=== PATIENT | male | born 1940 | race Caucasian/White ===

== ENCOUNTER 2020-08-16 05:16 | Inpatient (IN) ==
[2020-08-16 05:42] LABS: Basophils # 0.1 10*3/uL (0.0-0.2); Basophils % 0.5 % (0.0-0.8); Eosinophils # 0.1 10*3/uL (0.0-0.87); Eosinophils % 0.9 % (0.00-10.9); Hematocrit 45.4 VOL% (42.0-52.0); Hemoglobin 15.2 GM/DL (14.0-18.0); Immature Granulocytes % 0.6 %; Immature Granulocytes Absolute 0.08 #; Lymphocytes # 1.5 10*3/uL (1.4-4.0); Lymphocytes % 11.7 % (21.2-54.2); Mean Corpuscular HGB Conc 33.5 GM/DL (32-36); Mean Corpuscular Volume 87.3 FL (87-102); Mean Platelet Volume 9.1 FL (9.6-12.0); Monocytes % 7.2 % (1.7-12.7); Neutrophils % 79.1 % (38.7-73.9); Platelet Count 258 T/CUMM (130-400); Red Cell Distribution Width 14.2 % (9.3-17.3); White Blood Count 12.5 T/CUMM (4-12)
[2020-08-16 05:55] LABS: PT Patient Result 10.5 SECS (9.8-11.9); Partial Thromboplastin Time 35.6 SECS (23.9-33.8)
[2020-08-16 06:03] LABS: Albumin 3.8 G/DL (3.4-5.0); Bilirubin,Total 0.6 MG/DL (0.2-1.0); Calcium 9.6 MG/DL (8.5-10.1); Osmolality,Calculated 280.7 MOS/KG (273-304); Potassium 3.4 MMOL/L (3.5-5.1); Total Protein 8.2 G/DL (6.4-8.3)
[2020-08-16] MEDS ORDERED: LEVOFLOXACIN INJ 750 MG in PREMIX 1 EACH IV STA (07:20)
[2020-08-16] MEDS ORDERED: HYDROmorphone 2 MG/1 ML VIAL IV STA (07:51)
[2020-08-16] MEDS ORDERED: ONDANSETRON 4 MG/2 ML VIAL IV STA ×2 (07:51→09:48)
[2020-08-16] MEDS ORDERED: DEXTROSE 50% 25 GM/50 ML VIAL IV PRN (08:05)
[2020-08-16] MEDS ORDERED: GLUCAGON 1 MG VIAL IM PRN (08:05)
[2020-08-16] MEDS ORDERED: POTASSIUM CHLORIDE 20 MEQ TABLET PO PRN (08:07)
[2020-08-16 08:24] LABS: Bilirubin,Urine Negative (Negative); Blood, Urine Small mg/dL (Negative); Glucose,Urine (UA) 50 mg/dL (Negative); Ketones,Urine 5 mg/dL (Negative); Nitrite,Urine Negative (Negative); Protein,Urine Negative; RBC,Urine 2 /HPF (0-4); Urine Appearance CLEAR (Clear); Urine Color Straw (Yellow); Urine Urobilinogen < 2.0 EU/DL (0.2-1.0)
[2020-08-16] MEDS: SODIUM CHLORIDE 0.9% 1,000 ML IV SCH (09:05)
[2020-08-16] MEDS: ONDANSETRON 4 MG/2 ML VIAL IV PRN (11:45)
[2020-08-16] MEDS ORDERED: PROMETHAZINE INJ 12.5 MG in SODIUM CHLORIDE 0.9% 50 ML IV ONE (12:10)
[2020-08-16] MEDS: ACETAMINOPHEN 325 MG TABLET PO PRN ×2 (16:54→23:26)
[2020-08-16] MEDS: APIXABAN 5 MG TABLET PO SCH (20:41)
[2020-08-16] MEDS: METOPROLOL TARTRATE 25 MG TABLET PO SCH (20:41)
[2020-08-16] MEDS: NON-FORMULARY MEDICATION (Nintedanib [Ofev] 150 mg capsule) PO SCH (20:47)
[2020-08-17] MEDS: SODIUM CHLORIDE 0.9% 1,000 ML IV SCH (05:06)
[2020-08-17] MEDS: ACETAMINOPHEN 325 MG TABLET PO PRN ×4 (06:20→22:00)
[2020-08-17 06:31] LABS: Basophils % 0.3 % (0.0-0.8); Eosinophils # 0.1 10*3/uL (0.0-0.87); Eosinophils % 1.3 % (0.00-10.9); Hematocrit 41.1 VOL% (42.0-52.0); Hemoglobin 13.6 GM/DL (14.0-18.0); Immature Granulocytes % 0.2 %; Immature Granulocytes Absolute 0.02 #; Lymphocytes # 1.3 10*3/uL (1.4-4.0); Lymphocytes % 13.7 % (21.2-54.2); Mean Corpuscular HGB Conc 33.1 GM/DL (32-36); Mean Corpuscular Volume 89.2 FL (87-102); Mean Platelet Volume 9.4 FL (9.6-12.0); Monocytes % 10.2 % (1.7-12.7); Neutrophils % 74.3 % (38.7-73.9); Platelet Count 224 T/CUMM (130-400); Red Blood Count 4.61 MC/CUMM (3.8-5.5); Red Cell Distribution Width 14.4 % (9.3-17.3); White Blood Count 9.1 T/CUMM (4-12)
[2020-08-17 06:58] LABS: Albumin 2.9 G/DL (3.4-5.0); Calcium 8.6 MG/DL (8.5-10.1); Osmolality,Calculated 277.5 MOS/KG (273-304); Potassium 3.5 MMOL/L (3.5-5.1); Risk Ratio 2.8; Thyroid Stimulating Hormone 0.32 uIU/ml (0.358-3.74)
[2020-08-17] MEDS ORDERED: DILTIAZEM CD 240 MG CAPSULE PO SCH (09:00)
[2020-08-17] MEDS: APIXABAN 5 MG TABLET PO SCH (10:12)
[2020-08-17] MEDS: METOPROLOL TARTRATE 25 MG TABLET PO SCH (10:12)
[2020-08-17] MEDS: ASPIRIN EC 81 MG TABLET PO SCH (10:12)
[2020-08-17] MEDS: NON-FORMULARY MEDICATION (Nintedanib [Ofev] 150 mg capsule) PO SCH ×2 (10:13→20:58)
[2020-08-17] MEDS ORDERED: POTASSIUM CHLORIDE 20 MEQ TABLET PO ONE (12:05)
[2020-08-17] MEDS: ENOXAPARIN 40 MG/0.4 ML SYRINGE SUBCUT SCH (15:54)
[2020-08-17] MEDS: INSULIN REGULAR 100 UNIT/ML SUBCUT SCH ×2 (17:26→22:04)
[2020-08-17] MEDS: MEROPENEM 500 MG in SODIUM CHLORIDE 0.9% 100 ML IV SCH ×2 (17:28→23:00)
[2020-08-17] MEDS ORDERED: MEROPENEM 1,000 MG in SODIUM CHLORIDE 0.9% 100 ML IV SCH (17:30)
[2020-08-17] MEDS: ROSUVASTATIN 20 MG TABLET PO SCH (20:58)
[2020-08-17] MEDS: hydrALAZINE 20 MG/1 ML VIAL IV PRN (22:01)
[2020-08-18] MEDS: MEROPENEM 500 MG in SODIUM CHLORIDE 0.9% 100 ML IV SCH ×4 (05:23→23:08)
[2020-08-18] MEDS: ACETAMINOPHEN 325 MG TABLET PO PRN ×4 (05:23→23:08)
[2020-08-18 05:44] LABS: Basophils % 0.6 % (0.0-0.8); Eosinophils # 0.2 10*3/uL (0.0-0.87); Eosinophils % 3.4 % (0.00-10.9); Hematocrit 40.9 VOL% (42.0-52.0); Hemoglobin 13.5 GM/DL (14.0-18.0); Immature Granulocytes % 0.6 %; Immature Granulocytes Absolute 0.04 #; Lymphocytes # 1.2 10*3/uL (1.4-4.0); Lymphocytes % 18.3 % (21.2-54.2); Mean Corpuscular Volume 87.8 FL (87-102); Mean Platelet Volume 9.3 FL (9.6-12.0); Monocytes % 10.3 % (1.7-12.7); Neutrophils % 66.8 % (38.7-73.9); Platelet Count 241 T/CUMM (130-400); Red Blood Count 4.66 MC/CUMM (3.8-5.5); Red Cell Distribution Width 14.4 % (9.3-17.3); White Blood Count 6.7 T/CUMM (4-12)
[2020-08-18 06:15] LABS: Albumin 2.8 G/DL (3.4-5.0); Bilirubin,Total 0.5 MG/DL (0.2-1.0); Calcium 8.4 MG/DL (8.5-10.1); Potassium 3.6 MMOL/L (3.5-5.1); Total Protein 6.7 G/DL (6.4-8.3)
[2020-08-18] MEDS: INSULIN REGULAR 100 UNIT/ML SUBCUT SCH ×4 (07:25→22:03)
[2020-08-18] MEDS: SODIUM CHLORIDE 0.9% 1,000 ML IV SCH (07:57)
[2020-08-18] MEDS: NON-FORMULARY MEDICATION (Nintedanib [Ofev] 150 mg capsule) PO SCH ×2 (09:44→21:00)
[2020-08-18] MEDS: LOSARTAN 25 MG TABLET PO SCH ×2 (09:44→21:01)
[2020-08-18] MEDS: ASPIRIN EC 81 MG TABLET PO SCH (09:44)
[2020-08-18] MEDS: ENOXAPARIN 40 MG/0.4 ML SYRINGE SUBCUT SCH (15:36)
[2020-08-18] MEDS: ROSUVASTATIN 20 MG TABLET PO SCH (21:00)
[2020-08-19] MEDS: hydrALAZINE 20 MG/1 ML VIAL IV PRN (01:36)
[2020-08-19] MEDS: ACETAMINOPHEN 325 MG TABLET PO PRN (03:58)
[2020-08-19] MEDS: MEROPENEM 500 MG in SODIUM CHLORIDE 0.9% 100 ML IV SCH ×4 (05:04→23:45)
[2020-08-19] MEDS ORDERED: VANCOMYCIN INJ 1,250 MG in SODIUM CHLORIDE 0.9% 250 ML IV ONE ×2 (06:00→21:00)
[2020-08-19 06:09] LABS: Basophils # 0.1 10*3/uL (0.0-0.2); Basophils % 0.5 % (0.0-0.8); Eosinophils # 0.3 10*3/uL (0.0-0.87); Eosinophils % 3.3 % (0.00-10.9); Hematocrit 44.4 VOL% (42.0-52.0); Hemoglobin 14.7 GM/DL (14.0-18.0); Immature Granulocytes % 0.3 %; Immature Granulocytes Absolute 0.03 #; Lymphocytes # 1.4 10*3/uL (1.4-4.0); Mean Corpuscular HGB Conc 33.1 GM/DL (32-36); Mean Corpuscular Volume 88.8 FL (87-102); Mean Platelet Volume 9.3 FL (9.6-12.0); Monocytes % 9.8 % (1.7-12.7); Neutrophils % 72.1 % (38.7-73.9); Platelet Count 257 T/CUMM (130-400); Red Cell Distribution Width 14.5 % (9.3-17.3); White Blood Count 9.7 T/CUMM (4-12)
[2020-08-19 06:35] LABS: Bilirubin,Total 0.6 MG/DL (0.2-1.0); Calcium 8.6 MG/DL (8.5-10.1); Osmolality,Calculated 285.1 MOS/KG (273-304); Potassium 3.5 MMOL/L (3.5-5.1); Total Protein 6.8 G/DL (6.4-8.3)
[2020-08-19] MEDS: SODIUM CHLORIDE 0.9% 1,000 ML IV SCH ×3 (07:10→19:45)
[2020-08-19] MEDS: INSULIN REGULAR 100 UNIT/ML SUBCUT SCH ×4 (07:15→22:12)
[2020-08-19] MEDS ORDERED: propofoL 200 MG/20 ML VIAL IV ONE (08:02)
[2020-08-19] MEDS ORDERED: LIDOCAINE 2% 5 ML VIAL ONE (08:02)
[2020-08-19] MEDS ORDERED: ONDANSETRON 4 MG/2 ML VIAL ONE (08:02)
[2020-08-19] MEDS ORDERED: fentaNYL 100 MCG/2 ML VIAL ONE ×2 (08:03→09:24)
[2020-08-19] MEDS ORDERED: MIDAZOLAM 2 MG/2 ML VIAL ONE (08:03)
[2020-08-19] MEDS: LOSARTAN 25 MG TABLET PO SCH ×2 (09:21→20:32)
[2020-08-19] MEDS: NON-FORMULARY MEDICATION (Nintedanib [Ofev] 150 mg capsule) PO SCH ×2 (09:21→20:33)
[2020-08-19] MEDS: ASPIRIN EC 81 MG TABLET PO SCH (09:21)
[2020-08-19] MEDS ORDERED: ePHEDrine 50 MG/ML VIAL ONE (09:24)
[2020-08-19] MEDS ORDERED: ROCURONIUM 50 MG/5 ML VIAL IV ONE (09:25)
[2020-08-19] MEDS ORDERED: hydrALAZINE 20 MG/1 ML VIAL ONE (09:25)
[2020-08-19] MEDS ORDERED: GLYCOPYRROLATE 0.4 MG/2 ML VIAL ONE (09:25)
[2020-08-19] MEDS ORDERED: ACETAMINOPHEN 1,000 MG/100 ML VIAL IV ONE (09:25)
[2020-08-19] MEDS ORDERED: ETOMIDATE 40 MG/20 ML VIAL IV ONE (09:25)
[2020-08-19] MEDS ORDERED: NEOSTIGMINE 10 MG/10 ML VIAL ONE (09:25)
[2020-08-19] MEDS ORDERED: SEVOFLURANE 1 UNIT/15 MINUTE INH ONE (09:26)
[2020-08-19] MEDS ORDERED: ONDANSETRON 4 MG/2 ML VIAL IV PRN (10:03)
[2020-08-19] MEDS ORDERED: HYDROmorphone 2 MG/1 ML VIAL ONE (10:04)
[2020-08-19] MEDS: HYDROmorphone 2 MG/1 ML VIAL IV PRN ×2 (10:05→10:13)
[2020-08-19] MEDS: KETOROLAC 10 MG TABLET PO PRN (16:12)
[2020-08-19] MEDS: ROSUVASTATIN 20 MG TABLET PO SCH (20:32)
[2020-08-20] MEDS: KETOROLAC 10 MG TABLET PO PRN ×2 (01:10→07:33)
[2020-08-20] MEDS: ONDANSETRON 4 MG/2 ML VIAL IV PRN ×5 (03:00→20:36)
[2020-08-20] MEDS: MEROPENEM 500 MG in SODIUM CHLORIDE 0.9% 100 ML IV SCH ×4 (05:15→23:53)
[2020-08-20 07:09] LABS: Basophils # 0.1 10*3/uL (0.0-0.2); Basophils % 0.4 % (0.0-0.8); Eosinophils # 0.1 10*3/uL (0.0-0.87); Eosinophils % 1.1 % (0.00-10.9); Hematocrit 45.6 VOL% (42.0-52.0); Hemoglobin 14.2 GM/DL (14.0-18.0); Immature Granulocytes % 0.4 %; Immature Granulocytes Absolute 0.05 #; Lymphocytes % 7.9 % (21.2-54.2); Mean Corpuscular HGB Conc 31.1 GM/DL (32-36); Mean Corpuscular Volume 91.9 FL (87-102); Mean Platelet Volume 9.1 FL (9.6-12.0); Monocytes % 7.1 % (1.7-12.7); Neutrophils % 83.1 % (38.7-73.9); Platelet Count 248 T/CUMM (130-400); Red Blood Count 4.96 MC/CUMM (3.8-5.5); Red Cell Distribution Width 14.6 % (9.3-17.3); White Blood Count 12.1 T/CUMM (4-12)
[2020-08-20 07:45] LABS: Albumin 2.7 G/DL (3.4-5.0); Bilirubin,Total 0.5 MG/DL (0.2-1.0); Calcium 8.2 MG/DL (8.5-10.1); Osmolality,Calculated 276.5 MOS/KG (273-304); Potassium 3.5 MMOL/L (3.5-5.1); Total Protein 6.3 G/DL (6.4-8.3)
[2020-08-20 07:54] LABS: Calcium 8.1 MG/DL (8.5-10.1); Osmolality,Calculated 278.4 MOS/KG (273-304); Potassium 3.5 MMOL/L (3.5-5.1)
[2020-08-20] MEDS: hydrALAZINE 20 MG/1 ML VIAL IV PRN (07:58)
[2020-08-20] MEDS: NON-FORMULARY MEDICATION (Nintedanib [Ofev] 150 mg capsule) PO SCH ×2 (11:35→20:31)
[2020-08-20] MEDS: PANTOPRAZOLE 40 MG TABLET PO SCH (11:35)
[2020-08-20] MEDS: LOSARTAN 25 MG TABLET PO SCH ×2 (11:36→20:34)
[2020-08-20] MEDS: SODIUM CHLORIDE 0.9% 1,000 ML IV SCH (11:38)
[2020-08-20] MEDS: INSULIN REGULAR 100 UNIT/ML SUBCUT SCH ×3 (16:09→20:32)
[2020-08-20 16:29] LABS: Calcium 8.3 MG/DL (8.5-10.1); Osmolality,Calculated 277.5 MOS/KG (273-304); Potassium 3.6 MMOL/L (3.5-5.1)
[2020-08-20] MEDS: amLODIPine 5 MG TABLET PO SCH (17:37)
[2020-08-20] MEDS: ASPIRIN EC 81 MG TABLET PO SCH (17:41)
[2020-08-20] MEDS: ROSUVASTATIN 20 MG TABLET PO SCH (20:31)
[2020-08-20] MEDS: ACETAMINOPHEN 325 MG TABLET PO PRN (20:31)
[2020-08-20] MEDS ORDERED: CLOPIDOGREL 300 MG TABLET PO ONE (21:00)
[2020-08-20] MEDS: APIXABAN 5 MG TABLET PO SCH (21:49)
[2020-08-21] MEDS: ONDANSETRON 4 MG/2 ML VIAL IV PRN (02:47)
[2020-08-21] MEDS: MEROPENEM 500 MG in SODIUM CHLORIDE 0.9% 100 ML IV SCH ×2 (05:40→13:09)
[2020-08-21 06:25] LABS: Basophils % 0.3 % (0.0-0.8); Eosinophils # 0.1 10*3/uL (0.0-0.87); Eosinophils % 0.5 % (0.00-10.9); Hematocrit 45.9 VOL% (42.0-52.0); Hemoglobin 15.2 GM/DL (14.0-18.0); Immature Granulocytes % 0.5 %; Immature Granulocytes Absolute 0.07 #; Lymphocytes # 0.9 10*3/uL (1.4-4.0); Lymphocytes % 6.8 % (21.2-54.2); Mean Corpuscular HGB Conc 33.1 GM/DL (32-36); Mean Corpuscular Volume 89.1 FL (87-102); Mean Platelet Volume 9.3 FL (9.6-12.0); Neutrophils % 85.9 % (38.7-73.9); Platelet Count 244 T/CUMM (130-400); Red Blood Count 5.15 MC/CUMM (3.8-5.5); Red Cell Distribution Width 14.5 % (9.3-17.3); White Blood Count 13.3 T/CUMM (4-12)
[2020-08-21 06:39] LABS: Calcium 8.5 MG/DL (8.5-10.1); Osmolality,Calculated 278.5 MOS/KG (273-304)
[2020-08-21 06:41] LABS: Calcium 8.5 MG/DL (8.5-10.1); Osmolality,Calculated 280.4 MOS/KG (273-304); Potassium 4.1 MMOL/L (3.5-5.1)
[2020-08-21] MEDS ORDERED: LOSARTAN 50 MG TABLET PO SCH (09:00)
[2020-08-21] MEDS ORDERED: CLOPIDOGREL 75 MG TABLET PO SCH (09:00)
[2020-08-21] MEDS: APIXABAN 5 MG TABLET PO SCH (09:16)
[2020-08-21] MEDS: amLODIPine 5 MG TABLET PO SCH (09:16)
[2020-08-21] MEDS: PANTOPRAZOLE 40 MG TABLET PO SCH (09:16)
[2020-08-21] MEDS: KETOROLAC 10 MG TABLET PO PRN (09:16)
[2020-08-21] MEDS: NON-FORMULARY MEDICATION (Nintedanib [Ofev] 150 mg capsule) PO SCH (09:17)
[2020-08-21] MEDS: INSULIN REGULAR 100 UNIT/ML SUBCUT SCH ×2 (09:17→13:09)
[2020-08-21] MEDS: SODIUM CHLORIDE 0.9% 1,000 ML IV SCH (09:17)
[2020-08-21 11:37] VITALS: BP 160/97
== END 2020-08-21 17:29 | disposition home health service (06) | DRG 419 ==
LOC: N.ED 05:16 → SUATTDRO 08:05 → N.EDINP 08:05 → N.3E 11:05
PROVIDERS: ADMIT Internal Medicine; ATTEND Internal Medicine
PROC: LAPCHOL (2020-08-19 08:18)

== ENCOUNTER 2020-08-24 12:45 | Inpatient (IN) ==
[2020-08-24] MEDS ORDERED: ONDANSETRON 4 MG/2 ML VIAL IV STA (14:03)
[2020-08-24] MEDS ORDERED: SODIUM CHLORIDE 0.9% 1,000 ML IV STA (14:03)
[2020-08-24 14:31] LABS: Basophils % 0.2 % (0.0-0.8); Eosinophils % 0.2 % (0.00-10.9); Hematocrit 46.9 VOL% (42.0-52.0); Hemoglobin 15.2 GM/DL (14.0-18.0); Immature Granulocytes % 0.6 %; Immature Granulocytes Absolute 0.07 #; Lymphocytes # 0.9 10*3/uL (1.4-4.0); Lymphocytes % 7.4 % (21.2-54.2); Mean Corpuscular HGB Conc 32.4 GM/DL (32-36); Mean Corpuscular Volume 89.2 FL (87-102); Mean Platelet Volume 8.8 FL (9.6-12.0); Monocytes % 8.2 % (1.7-12.7); Neutrophils % 83.4 % (38.7-73.9); Platelet Count 285 T/CUMM (130-400); Red Blood Count 5.26 MC/CUMM (3.8-5.5); Red Cell Distribution Width 13.6 % (9.3-17.3); White Blood Count 12.4 T/CUMM (4-12)
[2020-08-24 14:53] LABS: Bilirubin,Total 0.6 MG/DL (0.2-1.0); Calcium 8.8 MG/DL (8.5-10.1); Osmolality,Calculated 289.4 MOS/KG (273-304); Potassium 3.6 MMOL/L (3.5-5.1); Total Protein 6.8 G/DL (6.4-8.3)
[2020-08-24] MEDS ORDERED: metroNIDAZOLE INJ 500 MG in PREMIX 1 EACH IV ONE (15:26)
[2020-08-24] MEDS ORDERED: LEVOFLOXACIN INJ 500 MG in PREMIX 1 EACH IV ONE (15:26)
[2020-08-24] MEDS ORDERED: BENZOCAINE/BUTAMBEN/TETRACAINE SPRAY 20 GM CAN TOP ONE (15:41)
[2020-08-24] MEDS ORDERED: ALBUTEROL/IPRATROPIUM 3 ML NEB RESP TX PRN (15:51)
[2020-08-24] MEDS ORDERED: ACETAMINOPHEN 325 MG TABLET PO PRN (15:51)
[2020-08-24] MEDS ORDERED: KETOROLAC 15 MG/1 ML VIAL IV PRN (15:51)
[2020-08-24] MEDS ORDERED: KETOROLAC 10 MG TABLET PO PRN (15:56)
[2020-08-24] MEDS ORDERED: fentaNYL 100 MCG/2 ML VIAL ONE (16:14)
[2020-08-24] MEDS ORDERED: ePHEDrine 50 MG/ML VIAL ONE (16:22)
[2020-08-24] MEDS ORDERED: LIDOCAINE 2% 5 ML VIAL ONE (16:44)
[2020-08-24] MEDS ORDERED: ROCURONIUM 50 MG/5 ML VIAL IV ONE (16:44)
[2020-08-24] MEDS ORDERED: SUCCINYLCHOLINE 200 MG/10 ML VIAL ONE (16:44)
[2020-08-24] MEDS ORDERED: PHENYLEPHRINE 1 MG/10 ML SYRINGE IV ONE (16:45)
[2020-08-24] MEDS ORDERED: SODIUM CHLORIDE 0.9% 1,000 ML IV ONE ×2 (16:45→17:03)
[2020-08-24] MEDS ORDERED: GLUCAGON 1 MG VIAL IM PRN (16:57)
[2020-08-24] MEDS ORDERED: DEXTROSE 50% 25 GM/50 ML VIAL IV PRN (16:57)
[2020-08-24] MEDS ORDERED: KETOROLAC 30 MG/1 ML VIAL ONE (16:57)
[2020-08-24] MEDS ORDERED: SUGAMMADEX 200 MG/2 ML VIAL IV ONE (16:58)
[2020-08-24] MEDS ORDERED: SEVOFLURANE 1 UNIT/15 MINUTE INH ONE (17:06)
[2020-08-24 17:38] LABS: Bilirubin,Urine Negative (Negative); Blood, Urine Negative (Negative); Glucose,Urine (UA) Negative (Negative); Ketones,Urine 20 mg/dL (Negative); Nitrite,Urine Negative (Negative); Protein,Urine 30 MG/DL; Urine Appearance CLEAR (Clear); Urine Color Amber (Yellow); Urine Specific Gravity 1.028 (1.001-1.035); Urine Urobilinogen < 2.0 EU/DL (0.2-1.0)
[2020-08-24] MEDS ORDERED: propofoL 200 MG/20 ML VIAL IV ONE (17:40)
[2020-08-24 17:43] LABS: RBC,Urine 2 /HPF (0-4); WBC,Urine <1 /HPF (0-6)
[2020-08-24] MEDS ORDERED: ONDANSETRON 4 MG/2 ML VIAL IV PRN (18:17)
[2020-08-24] MEDS: ONDANSETRON 4 MG/2 ML VIAL IV PRN ×2 (18:30→23:16)
[2020-08-24] MEDS ORDERED: OXYMETAZOLINE 0.05% NASAL SPRAY 15 ML BOTTLE ONE (18:36)
[2020-08-24 19:17] LABS: Hematocrit 43.5 VOL% (42.0-52.0); Hemoglobin 14.3 GM/DL (14.0-18.0)
[2020-08-24] MEDS: metroNIDAZOLE INJ 500 MG in PREMIX 1 EACH IV SCH (21:12)
[2020-08-24] MEDS: INSULIN REGULAR 100 UNIT/ML SUBCUT SCH (21:13)
[2020-08-24] MEDS: LOSARTAN 50 MG TABLET PO SCH (21:13)
[2020-08-24] MEDS: hydrALAZINE 20 MG/1 ML VIAL IV PRN (23:16)
[2020-08-25] MEDS ORDERED: HYDROmorphone 2 MG/1 ML VIAL IV PRN (00:46)
[2020-08-25] MEDS: LACTATED RINGERS 1,000 ML IV SCH ×3 (01:17→19:15)
[2020-08-25 04:00] LABS: Basophils # 0.1 10*3/uL (0.0-0.2); Basophils % 0.3 % (0.0-0.8); Eosinophils % 0.1 % (0.00-10.9); Hematocrit 42.9 VOL% (42.0-52.0); Immature Granulocytes % 1.2 %; Immature Granulocytes Absolute 0.21 #; Lymphocytes # 0.8 10*3/uL (1.4-4.0); Lymphocytes % 4.6 % (21.2-54.2); Mean Corpuscular HGB Conc 32.6 GM/DL (32-36); Mean Corpuscular Volume 88.8 FL (87-102); Mean Platelet Volume 9.4 FL (9.6-12.0); Monocytes % 8.3 % (1.7-12.7); Neutrophils % 85.5 % (38.7-73.9); Platelet Count 283 T/CUMM (130-400); Red Blood Count 4.83 MC/CUMM (3.8-5.5); Red Cell Distribution Width 13.8 % (9.3-17.3); White Blood Count 16.9 T/CUMM (4-12)
[2020-08-25 04:12] LABS: INR 1.3; PT Patient Result 13.4 SECS (9.8-11.9)
[2020-08-25 04:27] LABS: Albumin 2.7 G/DL (3.4-5.0); Bilirubin,Total 0.7 MG/DL (0.2-1.0); Calcium 7.9 MG/DL (8.5-10.1); Osmolality,Calculated 295.1 MOS/KG (273-304); Potassium 3.2 MMOL/L (3.5-5.1); Total Protein 6.2 G/DL (6.4-8.3)
[2020-08-25] MEDS: metroNIDAZOLE INJ 500 MG in PREMIX 1 EACH IV SCH (07:18)
[2020-08-25] MEDS ORDERED: amLODIPine 5 MG TABLET PO SCH (09:00)
[2020-08-25] MEDS: PANTOPRAZOLE 40 MG VIAL IV SCH (09:34)
[2020-08-25] MEDS: ONDANSETRON 4 MG/2 ML VIAL IV PRN ×2 (09:34→22:03)
[2020-08-25] MEDS ORDERED: LEVOFLOXACIN INJ 500 MG in PREMIX 1 EACH IV SCH (09:55)
[2020-08-25] MEDS ORDERED: amLODIPine 5 MG TABLET PO ONE (12:14)
[2020-08-25] MEDS ORDERED: PROMETHAZINE 25 MG/1 ML VIAL IM ONE (12:49)
[2020-08-25] MEDS: LOSARTAN 50 MG TABLET PO SCH ×2 (13:03→21:54)
[2020-08-25] MEDS: INSULIN REGULAR 100 UNIT/ML SUBCUT SCH ×3 (13:03→21:54)
[2020-08-25] MEDS: CIPROFLOXACIN INJ 400 MG in PREMIX 1 EACH IV SCH (13:15)
[2020-08-25] MEDS: hydrALAZINE 20 MG/1 ML VIAL IV PRN (13:15)
[2020-08-25] MEDS ORDERED: OXYMETAZOLINE 0.05% NASAL SPRAY 15 ML BOTTLE BOTH NARES PRN (16:48)
[2020-08-25] MEDS ORDERED: LORazepam 2 MG/1 ML VIAL IV ONE (17:50)
[2020-08-25] MEDS: ROSUVASTATIN 20 MG TABLET PO SCH (21:54)
[2020-08-26] MEDS: CIPROFLOXACIN INJ 400 MG in PREMIX 1 EACH IV SCH ×2 (01:58→14:27)
[2020-08-26] MEDS: LACTATED RINGERS 1,000 ML IV SCH ×4 (02:01→21:35)
[2020-08-26 08:49] LABS: Calcium 8.3 MG/DL (8.5-10.1); Potassium 3.5 MMOL/L (3.5-5.1)
[2020-08-26 08:52] LABS: Risk Ratio 1.56; VLDL CHOLESTEROL 10.4 MG/DL
[2020-08-26] MEDS: INSULIN REGULAR 100 UNIT/ML SUBCUT SCH ×3 (09:00→21:33)
[2020-08-26] MEDS: LOSARTAN 50 MG TABLET PO SCH ×2 (10:26→21:32)
[2020-08-26] MEDS: PANTOPRAZOLE 40 MG VIAL IV SCH ×2 (10:26→14:15)
[2020-08-26] MEDS: amLODIPine 10 MG TABLET PO SCH (10:26)
[2020-08-26 13:19] LABS: Basophils # 0.1 10*3/uL (0.0-0.2); Basophils % 0.4 % (0.0-0.8); Eosinophils # 0.1 10*3/uL (0.0-0.87); Eosinophils % 0.4 % (0.00-10.9); Hemoglobin 12.5 GM/DL (14.0-18.0); Immature Granulocytes % 0.8 %; Immature Granulocytes Absolute 0.12 #; Lymphocytes # 1.2 10*3/uL (1.4-4.0); Lymphocytes % 7.5 % (21.2-54.2); Mean Corpuscular HGB Conc 31.3 GM/DL (32-36); Mean Corpuscular Volume 92.2 FL (87-102); Mean Platelet Volume 9.4 FL (9.6-12.0); Monocytes % 8.3 % (1.7-12.7); Neutrophils % 82.6 % (38.7-73.9); Platelet Count 277 T/CUMM (130-400); Red Blood Count 4.34 MC/CUMM (3.8-5.5); Red Cell Distribution Width 14.4 % (9.3-17.3); White Blood Count 15.6 T/CUMM (4-12)
[2020-08-26] MEDS: POTASSIUM CHLORIDE RIDER 10 MEQ in PREMIX 1 EACH IV PRN ×3 (15:48→17:48)
[2020-08-26] MEDS: ROSUVASTATIN 20 MG TABLET PO SCH (21:32)
[2020-08-27] MEDS: CIPROFLOXACIN INJ 400 MG in PREMIX 1 EACH IV SCH ×2 (01:18→13:43)
[2020-08-27 05:30] LABS: Basophils # 0.1 10*3/uL (0.0-0.2); Basophils % 0.6 % (0.0-0.8); Eosinophils # 0.3 10*3/uL (0.0-0.87); Eosinophils % 2.5 % (0.00-10.9); Hematocrit 36.3 VOL% (42.0-52.0); Hemoglobin 12.1 GM/DL (14.0-18.0); Immature Granulocytes % 0.6 %; Immature Granulocytes Absolute 0.08 #; Lymphocytes # 1.9 10*3/uL (1.4-4.0); Lymphocytes % 15.4 % (21.2-54.2); Mean Corpuscular HGB Conc 33.3 GM/DL (32-36); Mean Corpuscular Volume 87.9 FL (87-102); Mean Platelet Volume 9.6 FL (9.6-12.0); Monocytes % 8.4 % (1.7-12.7); Neutrophils % 72.5 % (38.7-73.9); Platelet Count 247 T/CUMM (130-400); Red Blood Count 4.13 MC/CUMM (3.8-5.5); Red Cell Distribution Width 13.9 % (9.3-17.3); White Blood Count 12.6 T/CUMM (4-12)
[2020-08-27 05:51] LABS: Calcium 7.8 MG/DL (8.5-10.1); Osmolality,Calculated 279.4 MOS/KG (273-304); Potassium 2.8 MMOL/L (3.5-5.1)
[2020-08-27] MEDS: LACTATED RINGERS 1,000 ML IV SCH ×2 (07:35→07:50)
[2020-08-27] MEDS: INSULIN REGULAR 100 UNIT/ML SUBCUT SCH (09:00)
[2020-08-27] MEDS ORDERED: POTASSIUM CHLORIDE 20 MEQ TABLET PO ONE (09:30)
[2020-08-27] MEDS: LOSARTAN 50 MG TABLET PO SCH (10:22)
[2020-08-27] MEDS: amLODIPine 10 MG TABLET PO SCH (10:23)
[2020-08-27] MEDS: PANTOPRAZOLE 40 MG VIAL IV SCH (10:24)
[2020-08-27 20:11] VITALS: BP 132/74
[2020-08-27] MEDS ORDERED: APIXABAN 5 MG TABLET PO SCH (21:00)
[2020-08-28] MEDS ORDERED: CLOPIDOGREL 75 MG TABLET PO SCH (09:00)
== END 2020-08-27 17:10 | disposition home health service (06) | DRG 908 ==
LOC: N.ED 12:45 → N.3E 15:51
PROVIDERS: ADMIT Surgery; ATTEND Surgery